=== PATIENT | female | born 1965 | race Two or more races ===

== ENCOUNTER → 2025-03-19 | Outpatient (CLI) | payer BC, SELFPAY ==
[2025-03-19 12:12] LABS: Glucose Estimated Average 237 mg/dL (80-131); Hemoglobin A1C 9.9 % Hgb (4.8-6.0)
[2025-03-19 12:28] LABS: Creatinine MALB Rnd Ur 59 mg/dL (30-125); Microalbumin Creat Ratio 7 mg/gCrea (<30); Microalbumin, Random Urine 4 mg/L (0-300)
[2025-03-19 13:22] LABS: Alanine Aminotransferase 34 U/L (10-49); Albumin, Serum 4.7 gm/dL (3.4-4.8); Albumin/Globulin Ratio 1.8 (1.2-2.2); Alkaline Phosphatase 60 U/L (46-116); Anion Gap 9 (7-16); Aspartate Amino Transferase 27 U/L (0-34); BUN/Creatinine Ratio 30 Ratio (12-20); Bilirubin,Total 0.6 mg/dL (0.3-1.2); Blood Urea Nitrogen 21 mg/dL (9-23); Calcium 9.2 mg/dL (8.3-10.6); Calcium (Corrected) 9.2 mg/dL (8.5-10.1); Carbon Dioxide 26.4 mMol/L (20.0-31.0); Cardiac Risk Estimate 5.3 RATIO (3.7-5.6); Chloride 104 mMol/L (98-107); Cholesterol 253 mg/dL (132-200); Creatinine (Component) 0.7 mg/dL (0.6-1.3); Free T3 2.5 pg/mL (2.3-4.2); Free T4 (Free Thyroxine) 1.38 ng/dL (0.89-1.76); Globulin 2.6 gm/dL (2.3-3.5); Glucose 165 mg/dL (74-106); HDL Cholesterol 48 mg/dL (40-60); LDL Cholesterol,Calculated 137 mg/dL (0-130); Osmolality,Calculated 284 (275-295); Potassium 4.3 mMol/L (3.4-5.1); Sodium 139 mMol/L (136-145); Thyroid Stimulating Hormone 3.54 uIU/mL (0.55-4.78); Total Protein 7.3 gm/dL (5.7-8.2); Triglycerides 342 mg/dL (30-150); eGFR > 60 See Note
== END | disposition home or self-care (01) ==
LOC: COPL 10:56
PROVIDERS: PCP Specialist; Referring Provider Specialist; Visit Provider Specialist
DX: E11.65 Type 2 diabetes mellitus with hyperglycemia (principal); E78.2 Mixed hyperlipidemia; E03.9 Hypothyroidism, unspecified
CPT/HCPCS: 36415; 80053; 80061; 82043; 82570; 83036; 84439; 84443; 84481

== ENCOUNTER → 2025-04-22 | Outpatient (CLI) | payer BC, SELFPAY ==
[2025-04-22 11:02] LABS: Glucose Estimated Average 203 mg/dL (80-131); Hemoglobin A1C 8.7 % Hgb (4.8-6.0)
== END | disposition home or self-care (01) ==
LOC: COPL 09:11
PROVIDERS: PCP Specialist; Referring Provider Specialist; Visit Provider Specialist
DX: E11.65 Type 2 diabetes mellitus with hyperglycemia (principal)
CPT/HCPCS: 36415; 83036

== ENCOUNTER → 2025-06-26 | Outpatient (CLI) | payer BC, SELFPAY ==
--- NOTE | 2025-06-26 08:15 | XR_ITS ---
Examination: Screening digital mammography, bilateral Computer aided detection 3-D breast Tomosynthesis, bilateral Date and time of exam: June 26, 2025 0746 hours Compared to mammograms dating to June 17, 2009 Indication: Screening Technique: Nonmagnified MLO, CC views of the breasts to been obtained, reconstructed from 3-D Tomosynthesis images. R2 computer aided detection program utilized for evaluation of suspicious masses and/or abnormal calcifications. 3-D Tomosynthesis images obtained. Findings: Scattered areas of fibroglandular density. Benign calcifications. No interval suspicious masses Impression: BI-RADS category II: Benign Findings. Recommend 1 year follow-up mammogram.
[2025-06-26 08:46] LABS: Creatinine MALB Rnd Ur 67 mg/dL (30-125); Microalbumin Creat Ratio 9 mg/gCrea (<30); Microalbumin, Random Urine 6 mg/L (0-300)
[2025-06-26 08:51] LABS: Alanine Aminotransferase 32 U/L (10-49); Albumin, Serum 4.7 gm/dL (3.4-4.8); Albumin/Globulin Ratio 2.0 (1.2-2.2); Alkaline Phosphatase 54 U/L (46-116); Anion Gap 12 (7-16); Aspartate Amino Transferase 21 U/L (0-34); BUN/Creatinine Ratio 25 Ratio (12-20); Bilirubin,Total 0.6 mg/dL (0.3-1.2); Blood Urea Nitrogen 15 mg/dL (9-23); Calcium 9.9 mg/dL (8.3-10.6); Calcium (Corrected) 9.9 mg/dL (8.5-10.1); Carbon Dioxide 23.3 mMol/L (20.0-31.0); Chloride 106 mMol/L (98-107); Creatinine (Component) 0.6 mg/dL (0.6-1.3); Free T4 (Free Thyroxine) 1.41 ng/dL (0.89-1.76); Globulin 2.3 gm/dL (2.3-3.5); Glucose 132 mg/dL (74-106); Osmolality,Calculated 284 (275-295); Potassium 3.9 mMol/L (3.4-5.1); Sodium 141 mMol/L (136-145); Thyroid Stimulating Hormone 3.00 uIU/mL (0.55-4.78); Total Protein 7.0 gm/dL (5.7-8.2); eGFR > 60 See Note
[2025-06-26 14:17] LABS: Cholesterol 187 mg/dL (132-200); Triglycerides 179 mg/dL (30-150)
[2025-06-26 14:59] LABS: Cardiac Risk Estimate 3.6 RATIO (3.7-5.6); HDL Cholesterol 52 mg/dL (40-60); LDL Cholesterol,Calculated 99 mg/dL (0-130)
[2025-06-26 16:41] LABS: Glucose Estimated Average 186 mg/dL (80-131); Hemoglobin A1C 8.1 % Hgb (4.8-6.0)
== END | disposition home or self-care (01) ==
LOC: CDIM 07:20 → COPL 07:28
PROVIDERS: PCP Specialist; Referring Provider Specialist; Visit Provider Radiology Diagnostic Radiology
DX: Z12.31 Encounter for screening mammogram for malignant neoplasm of breast (principal); R92.8 Other abnormal and inconclusive findings on diagnostic imaging of breast; R92.323 Mammographic fibroglandular density, bilateral breasts; E11.65 Type 2 diabetes mellitus with hyperglycemia; E78.2 Mixed hyperlipidemia; E03.9 Hypothyroidism, unspecified
CPT/HCPCS: 36415; 77063; 77067; 80053; 80061; 82043; 82570; 83036; 84439; 84443

== ENCOUNTER → 2025-09-19 | Outpatient (CLI) | payer BC, SELFPAY ==
[2025-09-19 09:42] LABS: Glucose Estimated Average 163 mg/dL (80-131); Hemoglobin A1C 7.3 % Hgb (4.8-6.0)
[2025-09-19 10:29] LABS: Alanine Aminotransferase 29 U/L (10-49); Albumin, Serum 4.7 gm/dL (3.4-4.8); Albumin/Globulin Ratio 2.4 (1.2-2.2); Alkaline Phosphatase 59 U/L (46-116); Anion Gap 10 (7-16); Aspartate Amino Transferase 25 U/L (0-34); BUN/Creatinine Ratio 28 Ratio (12-20); Bilirubin,Total 0.4 mg/dL (0.3-1.2); Blood Urea Nitrogen 17 mg/dL (9-23); Calcium 9.4 mg/dL (8.3-10.6); Calcium (Corrected) 9.4 mg/dL (8.5-10.1); Carbon Dioxide 25.0 mMol/L (20.0-31.0); Cardiac Risk Estimate 3.2 RATIO (3.7-5.6); Chloride 105 mMol/L (98-107); Cholesterol 158 mg/dL (132-200); Creatinine (Component) 0.6 mg/dL (0.6-1.3); Globulin 2.0 gm/dL (2.3-3.5); Glucose 134 mg/dL (74-106); HDL Cholesterol 49 mg/dL (40-60); LDL Cholesterol,Calculated 70 mg/dL (0-130); Osmolality,Calculated 282 (275-295); Potassium 4.2 mMol/L (3.4-5.1); Sodium 140 mMol/L (136-145); Total Protein 6.7 gm/dL (5.7-8.2); Triglycerides 195 mg/dL (30-150); eGFR > 60 See Note
== END | disposition home or self-care (01) ==
LOC: COPL 08:02
PROVIDERS: PCP Specialist; Referring Provider Specialist; Visit Provider Specialist
DX: E11.69 Type 2 diabetes mellitus with other specified complication (principal)
CPT/HCPCS: 36415; 80053; 80061; 83036